=== PATIENT | female | born 1970 | race American Indian/Alaskan Native ===

== ENCOUNTER 2017-01-15 08:30 | Day surgery (SDC) | payer BC ==
[2017-01-15] MEDS ORDERED: NACL 0.9% 1000 ML 1,000 ML IV SCH (09:00)
--- NOTE | 2017-01-15 09:14 | Anesthesia Day of Surgery ---
Anesthesia Day of Surgery - Day of Surgery Patient Examined: Yes Patient H&P Reviewed: Yes Patient is NPO: Yes
--- NOTE | 2017-01-15 09:15 | Anesthesia Consultation ---
Anesthesia Consult and Med Hx Date of service: 01/15/17 - Airway Anesthetic Teeth Evaluation: Good ROM Head & Neck: Adequate Mental/Hyoid Distance: Adequate Mallampati Class: Class II Intubation Access Assessment: Probably Good - Pulmonary Exam CTA: Yes - Cardiac Exam Cardiac Exam: RRR - Pre-Operative Health Status ASA Pre-Surgery Classification: ASA1 Proposed Anesthetic Plan: MAC - Pulmonary Hx Smoking: No - Cardiovascular System Hx Hypertension: No Hx Heart Attack/AMI: No - Central Nervous System Hx Seizures: No CVA: No - Endocrine Hx Renal Disease: No Hx Liver Disease: No Hx Non-Insulin Dependent Diabetes: No - Additional Comments Anesthesia Medical History Comments: NAC
[2017-01-15] MEDS ORDERED: DIPRIVAN 10 MG/ML IV ONE ×2 (09:16)
--- NOTE | 2017-01-15 10:29 | Short Stay Summary ---
Short Stay Documentation Date of service: 01/15/17 Narrative H&P: Patient presents for her first screening colonoscopy. No prior studies. Average risks - History Past Medical History: No medical history Past Surgical History: No surgical history Social history: no significant social history - Allergies and Medications Current Medications: Allergies No Known Allergies Allergy (Unverified 01/15/17 08:30) Active Medications Sodium Chloride (Nacl 0.9% 1000 Ml) 1,000 mls @ 50 mls/hr IV DIRECT GENEVIEVE Last Admin: 01/15/17 09:38 Dose: 50 mls/hr - Physical exam General appearance: no acute distress, well-nourished Integumentary: no rash, no growths, no abnormal pigmentation HEENT: Atraumatic, PERRLA, EOMI, Mucous membr. moist/pink Lungs: Clear to auscultation, Normal air movement Breasts: deferred Heart: Regular rate, Normal S1, Normal S2, No murmurs Gastrointestinal: normoactive bowel sounds, no distended, no masses, no guarding Female Genitourinary: deferred Rectal Exam: deferred, normal exam-external/orifice, normal rectal tone, no mass Extremities: no ischemia, pulses intact, pulses symmetrical, No edema, normal temperature, normal color, Full ROM Neurological: Normal gait, Normal speech, Strength at 5/5 X4 ext, Normal tone, Sensation intact, Cranial nerves 3-12 NL - Brief post op/procedure progress note Date of procedure: 01/15/17 Findings: see intake form Estimated blood loss: none Pathology: none Condition: stable - Disposition Condition at discharge: Good - Discharge Diagnoses (1) Colon cancer screening Status: Acute Short Stay Discharge Plan Activity: other (no driving for 24 hours) Weight Bearing Status: Full Weight Bearing Diet: regular
--- NOTE | 2017-01-15 10:30 | Operative Report ---
Operative Report Operative Report: Date of procedure: 01/15/2017 Preprocedure diagnosis: Colon cancer screening, average risk Post procedure diagnosis: Normal study to the cecum Procedure: Colonoscopy to the cecum Endoscopist: Dr. Burroughs Anesthesia: Monitored anesthesia care per anesthesia department Estimated blood loss: 0 Medications: Monitored anesthesia care. See separate report by anesthesia for details. After careful discussion of the nature and purpose of the procedure as well as details of the technique risks benefits and alternatives the patient gave consent. Please see recent history and physical from the office. The patient was placed in the left lateral decubitus position and medicated per anesthesia. A rectal exam was performed sphincter tone was normal there were no masses palpable. The Scrap Connectionn 570 scope was passed transanally and advanced under continuous direct vision without difficulty to the cecum. The colon was well prepared. The cecum was normal. The ascending colon was normal and on forward and retroflexed views. The transverse colon, descending colon, and sigmoid colon were normal. The rectum was normal on forward and retroflexed views. The procedure was well-tolerated overall and the patient was observed in recovery. Conclusions: Normal colonoscopy to the cecum. Plan: Repeat colonoscopy in 10 years Signed electronically: Nico Burroughs M.D.
--- NOTE | 2017-01-15 10:42 | Post Anesthesia Evaluation ---
- Post Anesthesia Evaluation Patient Participated: Yes Airway Patent: Yes Stable Respiratory Function: Yes Nausea/Vomiting: No Temp > 96.8F: Yes Pain Manageable: Yes Adequeate Hydration: Yes Anesthesia Complications: No
[2017-01-15 10:55] VITALS: BP 127/81
== END 2017-01-15 08:31 | disposition home or self-care (01) ==
LOC: GIO 08:30
PROVIDERS: ATTEND Internal Medicine Gastroenterology
DX: Z12.11 Encounter for screening for malignant neoplasm of colon (principal)
CPT/HCPCS: 45378; 81025; J2704; J7030

== ENCOUNTER 2017-09-30 07:14 | Outpatient (CLI) | payer BC ==
--- NOTE | 2017-10-01 12:12 | Mammography Report ---
BILATERAL DIGITAL SCREENING MAMMOGRAM with CAD: 09/30/17 07:14:00 CLINICAL: Routine screening. COMPARISON:None available. She indicated that she has had a previous mammogram but did not give the location. FINDINGS: The breasts are heterogeneously dense, which may obscure small masses. A left upper outer biopsy clip in benign appearing calcifications adjacent to the clip.Several left inner asymmetries require additional imaging. Right retroareolar and outer calcifications along with a right inner asymmetry require additional imaging. IMPRESSION: Bilateral asymmetries and right calcifications requiring further workup. BI-RADS CATEGORY: 0 -- Additional Imaging Evaluation Required RECOMMENDATION: Recall for bilateral true lateral, right exaggerated CC and right ML and exaggerated CC spot magnification views and bilateral breast ultrasound if needed. ACR BI-RADS MAMMOGRAPHIC CODES: 0 = Needs additional imaging evaluation; 1 = Negative; 2 = Benign; 3 = Probably benign; 4 = Suspicious; 5 = Malignant; 6 = Known biopsy-proven malignancy COMMENT: 1. Dense breast tissue, i.e., adenosis, fibrocystic changes, etc., may obscure an underlying neoplasm. 2. Approximately 10% of cancers are not detected with mammography. 3. A negative mammography report should not delay biopsy if a clinically suspicious mass is present. COMMENT: Patient follow-up letters are generated via our [employer] application.
== END 2017-09-30 07:15 | disposition home or self-care (01) ==
LOC: MAMMO 07:14
PROVIDERS: ATTEND Obstetrics & Gynecology
DX: Z12.31 Encounter for screening mammogram for malignant neoplasm of breast (principal)
CPT/HCPCS: 77067

== ENCOUNTER 2017-10-06 09:24 | Outpatient (CLI) | payer BC ==
[2017-10-06 10:02] LABS: BUN/Creatinine Ratio 22; Blood Urea Nitrogen 13 mg/dL (7-17); Chol/HDL Ratio 2.97 %; HDL Cholesterol 46 mg/dL (40-59); Hemolysis Index 3; LDL Cholesterol,Direct 83 mg/dL (50-130)
== END 2017-10-06 09:25 | disposition home or self-care (01) ==
LOC: LAB 09:24
PROVIDERS: ATTEND Obstetrics & Gynecology
DX: Z01.411 Encounter for gynecological examination (general) (routine) with abnormal findings (principal); R79.89 Other specified abnormal findings of blood chemistry
CPT/HCPCS: 36415; 80048; 80061

== ENCOUNTER 2017-11-07 10:38 | Outpatient (CLI) | payer BC ==
--- NOTE | 2017-11-10 15:04 | Ultrasound Report ---
BILATERAL DIGITAL DIAGNOSTIC MAMMOGRAM and BILATERAL BREAST ULTRASOUND: 11/07/17 10:38:00 CLINICAL: Recalled for bilateral asymmetries and right calcifications. COMPARISON:09/30/17 screening FINDINGS: Right exaggerated CC and ML views with spot magnification demonstrated several groups of amorphous outer calcificationswhich do not layer on the lateral view. On the screening images there is a suggestion that these may be related to one or more lymph nodes in the axilla. However, no distinct lymph nodes are identified on the spot images. A group of similar calcifications is identified on a spot mag CC view. These are slightly lateral to the nipple and approximately 6 cm from the nipple. They're not clearly identified on MLO or lateral views. Partial effacement of bilateral lower inner asymmetries on spot mag views. Ultrasound of both breasts (including all four quadrants and the retroareolar area) was performed. A cyst with low level internal echoes at 9 o'clock 2 cm from the nipple measures 5 x 3 x 3 mm. An isoechoic oval smooth mass versus normal fat lobule at 3 o'clock next to the nipple measures 1.1 x 0.5 x 0.8 cm. Ultrasound of the right axilla demonstrated a lymph node with benign morphology at 10 o'clock 12 cm from the nipple measuring 1.8 x 0.6 cm. Several smaller benign-appearing lymph nodes and no distinct calcifications associated with the lymph nodes. An irregular left cyst with low level internal echoes at 11 o'clock next to the nipple measures 1.5 x 0.7 x 1.7 cm. A cyst at 10 o'clock 6 cm from the nipple measures 5 x 3 x 6 mm. An isoechoic mass versus normal breast lobule at 8 o'clock 3 cm from the nipple measures 6 x 5 x 4 mm. A complex cyst at 6 o'clock 4 cm from the nipple measures 6 x 3 x 7 mm. A cyst at 4 o'clock 3 cm from the nipple measures 7 x 8 x 5 mm. IMPRESSION: Probably benign right calcifications and probably benign mammographic asymmetries and bilateral complex cysts. BI-RADS CATEGORY: 3 - - Probably Benign RECOMMENDATION: Six month followup bilateral mammogram and bilateral breast ultrasound at [facility]. ACR BI-RADS MAMMOGRAPHIC CODES: 0 = Needs additional imaging evaluation; 1 = Negative; 2 = Benign; 3 = Probably benign; 4 = Suspicious; 5 = Malignant; 6 = Known biopsy-proven malignancy COMMENT: 1. Dense breast tissue, i.e., adenosis, fibrocystic changes, etc., may obscure an underlying neoplasm. 2. Approximately 10% of cancers are not detected with mammography. 3. A negative mammography report should not delay biopsy if a clinically suspicious mass is present. COMMENT: Patient follow-up letters are generated via our [employer] application.
== END 2017-11-07 10:39 | disposition home or self-care (01) ==
LOC: MAMMO 10:38
PROVIDERS: ATTEND Obstetrics & Gynecology
DX: N64.89 Other specified disorders of breast (principal)
CPT/HCPCS: 77066

== ENCOUNTER 2018-06-22 09:21 | Outpatient (CLI) | payer BC ==
--- NOTE | 2018-06-25 08:58 | Ultrasound Report ---
BILATERAL BREAST ULTRASOUND: 06/22/18 09:21:00 CLINICAL: Bilateral asymmetries on recent mammogram. COMPARISON: 05/29/18 bilateral mammogram and 11/07/17 bilateral breast ultrasound. FINDINGS: Ultrasound of the right breast(including all four quadrants and the retroareolar area) was performed and demonstrated a stable oval smooth solid mass at 3 o'clock near the areola measuring 1.0 x 0.8 x 0.6 cm compared to 1.1 x 0.5 x 0.8 cm. This was thought to possibly be a normal fat lobule on the last exam. New complex cysts versus solid nodules at 2 o'clock at the areola measuring 5 x 5 x 3 mm and at 4 o'clock 5 cm from the nipple measuring 5 x 3 x 3 mm. A benign cyst at 9 o'clock 3 cm from the nipple measures 5 x 3 x 2 mm. Ultrasound of the left breast (including all four quadrants and the retroareolar area) was performed and demonstrated an oval smooth complex cyst versus solid nodule at 7 o'clock near the areola measuring 9 x 5 x 5 mm. This is apparently new since the last exam. An irregular complex cyst versus solid nodule at 3 o'clock 3 cm from the nipple measures 5 x 5 x 2 mm. A benign cyst at 4 o'clock 2 cm from the nipple measures 8 x 7 x 5 mm. A slightly irregular complex cyst versus solid nodule subareolar at 9 o'clock measures 9 x 5 mm. The previously described irregular cyst at 11 o'clock next to the nipple is no longer identified. Several additional small benign cysts and probably benign complex cysts. IMPRESSION: Bilateral benign cyst and probably benign complex cyst versus solid nodules. Stable oval smooth solid probably benign right breast mass at 3 o'clock near the areola measuring 1.0 x 0.8 x 0.6 cm. BI-RADS 3 - - Probably Benign RECOMMENDATION: Six month followup bilateral breast ultrasound.
== END 2018-06-22 09:22 | disposition home or self-care (01) ==
LOC: US 09:21
PROVIDERS: ATTEND Obstetrics & Gynecology
DX: N60.02 Solitary cyst of left breast (principal); N60.01 Solitary cyst of right breast

== ENCOUNTER 2019-01-21 09:19 | Outpatient (CLI) | payer BC ==
--- NOTE | 2019-01-21 17:15 | Mammography Report ---
LEFT DIGITAL DIAGNOSTIC MAMMOGRAM 01/21/2019 BILATERAL BREAST ULTRASOUND INDICATION: Bilateral complex cyst seen on prior ultrasound. Changing nodularity in the retroareolar left breast on ultrasound. TECHNIQUE: Digital left mammographic imaging was performed. Left breast CC and MLO images were obtai greg. Spot compression views were obtained. COMPARISON: Mammogram dated 11/07/2017 and ultrasound dated 06/22/2018 FINDINGS: Breast Density: The breasts are heterogeneously dense, which may obscure small masses. There is no evidence of dominant mass, suspicious calcifications or architectural distortion in the l eft breast. Specifically, there is no definitive abnormality seen in the retroareolar left breast cor relate with the patient's changing nodularity seen on current ultrasound Ultrasound Findings: Complete sonographic evaluation of all four quadrants and retroareolar region wa s performed. Both breasts were ultrasounded.. Bilateral axillary regions were imaged as well. Right breast: A benign-appearing nodule is seen in the 3:00 retroareolar position measuring 10 mm in maximum diameter, unchanged from the prior ultrasound. In the retroareolar 2:00 position of the right breast there is a mixed echotexture nodule measuring 11 x 4 x 6 mm. It has smooth borders and increa sed through transmission and is parallel to the skin surface. It has become more solid appearing and larger when compared with the prior ultrasound.. Minimal vascularity is noted on Doppler analysis. Th is nodule may have a hyperechoic center. The remainder of the right breast shows normal fibroglandula r tissue. On the left a benign-appearing cyst is noted in the 4:00 position 5 cm from nipple measuring 8.5 mm i n maximum diameter. In the retroareolar 7:00 position there is a solid nodule measuring 5.9 x 4.2 x 3 .9 mm. This is essentially unchanged from ultrasound dated 11/07/2017 (labeled as 8:00 position on the prior ultrasound). In the retroareolar 9:00 position, there is an irregular solid mass measuring 1.3 x 0.6 x 1.0 cm (0.9 x 0.5 x 0.9 cm on prior ultrasound). There is no definitive mammographic correlat e. The remainder of the left breast shows normal thyroid glandular tissue. IMPRESSION: Retroareolar solid nodule in the 9:00 position appears to be increasing in size. There is no mammographic bullet. Ultrasound-guided biopsy is recommended. BI-RADS Category 4: Suspicious for Malignancy. A "normal" or negative report should not discourage follow up or biopsy of a clinically significant f inding. A written summary of these findings will be mailed to the patient. The patient will be entered into a mammography reporting system which will generate a reminder letter for the patient's next appointmen t at the appropriate interval. According to the [employer], yearly mammograms are recommended starting at age 40 and continuing as long as a woman is in good health. Breast MRI is recommended for women with an rosalie roximately 20-25% or greater lifetime risk of breast cancer, including women with a strong family his tory of breast or ovarian cancer and women who have been treated for Hodgkin's disease. Signer Name: Deloris Hager MD Signed: 01/21/2019 5:11 PM Workstation Name: [id number]
== END 2019-01-21 09:20 | disposition home or self-care (01) ==
LOC: US 09:19
PROVIDERS: ATTEND Obstetrics & Gynecology
DX: N63.12 Unspecified lump in the right breast, upper inner quadrant (principal); N63.23 Unspecified lump in the left breast, lower outer quadrant; R92.8 Other abnormal and inconclusive findings on diagnostic imaging of breast

== ENCOUNTER 2019-03-12 13:41 | Emergency (ER) | payer BC, OTHER ==
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
[2019-03-12 16:20] VITALS: BP 150/79
== END 2019-03-12 16:20 | disposition home or self-care (01) ==
LOC: ED 13:41
DX: S29.012A Strain of muscle and tendon of back wall of thorax, initial encounter (principal); Z91.018 Allergy to other foods; V89.2XXA Person injured in unspecified motor-vehicle accident, traffic, initial encounter; Y93.89 Activity, other specified; Y92.410 Unspecified street and highway as the place of occurrence of the external cause; Y99.8 Other external cause status
CPT/HCPCS: 72070

== ENCOUNTER 2019-08-02 09:20 | Outpatient (CLI) | payer BC ==
--- NOTE | 2019-08-03 08:13 | Ultrasound Report ---
LIMITED BILATERAL BREAST ULTRASOUND HISTORY: Follow-up bilateral probably benign cysts and nodules. COMPARISON: 01/21/2019 FINDINGS: Focused sonographic evaluation upon the 3:00 retroareolar location of the right breast demo nstrates a stable 9 x 6 mm x 7 oval smooth solid mass which is slightly hypoechoic compared to adjace nt fat lobules. A stable complex mass at the edge of the areola at 2:00 measures 10 x 4 x 6 mm. It vera s a 4 mm cystic component. Focused sonographic evaluation upon the 4:00 5 cm from the nipple location of the left breast demonst rates a slightly smaller oval cyst with low-level internal echoes measuring 7 x 6 x 6 mm. An oval too id relatively smooth mildly hypoechoic mass at the edge of the areola at 7:00 measures 6 x 4 x 6 mm a nd is unchanged. An irregular hypoechoic mass versus complex cyst at 9:00 at the edge of the areola m easures 12 14 x 5 mm compared to 13 x 10 x 10 mm. IMPRESSION: 1. A stable probably benign solid smooth right breast mass at 3:00 retroareolar and a stable complex right breast mass at the edge of the areola at 2:00. 2. A slightly smaller benign left breast cyst at 4:00 5 cm from the nipple. 3. A stable probably benign 6 mm solid left breast mass at the edge of the areola at 7:00. 4. A stable probably benign 14 mm complex cyst versus solid left breast mass at 9:00 at the edge of t he areola. 5. Recommend additional 6 month follow-up bilateral breast ultrasound and bilateral diagnostic mammog mag to reevaluate the right breast lesions at 3:00 and at 2:00 and the left breast lesions at 7:00 an d at 9:00. BIRADS 3: Probably benign. Signer Name: José Chinchilla MD Signed: 08/03/2019 8:09 AM Workstation Name: [id number]
== END 2019-08-02 09:21 | disposition home or self-care (01) ==
LOC: US 09:20
PROVIDERS: ATTEND Obstetrics & Gynecology
DX: N60.01 Solitary cyst of right breast (principal); N60.02 Solitary cyst of left breast; N64.89 Other specified disorders of breast

== ENCOUNTER 2020-07-18 10:54 | Outpatient (CLI) | payer BC ==
[2020-07-18 11:33] LABS: Basophils # (Auto) 0.1 K/mm3 (0.0-0.1); Basophils % (Auto) 1.1 % (0.0-1.8); Eosinophils % (Auto) 0.6 % (0.0-4.3); Hematocrit 34.7 % (30.3-42.9); Hemoglobin 11.3 gm/dl (10.1-14.3); Lymphocytes # (Auto) 2.8 K/mm3 (1.2-5.4); Lymphocytes % (Auto) 38.4 % (13.4-35.0); Mean Corpuscular HGB Conc 33 % (30-34); Mean Corpuscular Volume 88 fl (79-97); Monocytes # (Auto) 0.7 K/mm3 (0.0-0.8); Monocytes % (Auto) 8.9 % (0.0-7.3); Platelet Count 172 K/mm3 (140-440); Red Blood Count 3.93 M/mm3 (3.65-5.03); Red Cell Distribution Width 15.6 % (13.2-15.2)
== END 2020-07-18 10:55 | disposition home or self-care (01) ==
LOC: LAB 10:54
PROVIDERS: ATTEND Obstetrics & Gynecology
DX: N92.0 Excessive and frequent menstruation with regular cycle (principal); L68.0 Hirsutism; R63.4 Abnormal weight loss
CPT/HCPCS: 36415; 82670; 83001; 84402; 84443; 85025

== ENCOUNTER 2021-05-08 12:11 | Outpatient (CLI) | payer BC ==
--- NOTE | 2021-05-08 13:16 | XRay Report ---
RIGHT FOOT HISTORY: Pain. COMPARISON: None. TECHNIQUE: 3 views of the right foot were obtained. FINDINGS: Bones: No fracture or dislocation. Joint spaces: Maintained. Soft tissues: No significant abnormality. Additional findings: None. IMPRESSION: Right foot without evidence of acute osseous injury. Signer Name: oCllin Gonsalez MD Signed: 05/08/2021 1:11 PM Workstation Name: [id number]
== END 2021-05-08 12:12 | disposition home or self-care (01) ==
LOC: XRAY 12:11
PROVIDERS: ATTEND Orthopaedic Surgery
DX: S92.354A Nondisplaced fracture of fifth metatarsal bone, right foot, initial encounter for closed fracture (principal); X58.XXXA Exposure to other specified factors, initial encounter; Y93.89 Activity, other specified; Y92.89 Other specified places as the place of occurrence of the external cause; Y99.8 Other external cause status

== ENCOUNTER 2021-05-09 23:40 | Emergency (ER) | payer BC ==
[2021-05-10] MEDS ORDERED: ASPIRIN 325 MG TAB PO ONE (02:27)
--- NOTE | 2021-05-10 02:58 | XRay Report ---
CHEST 2 VIEWS INDICATION / CLINICAL INFORMATION: Palpitations and bradycardia. COMPARISON: None available. FINDINGS: SUPPORT DEVICES: None. HEART / MEDIASTINUM: The heart size and pulmonary vasculature are normal. The aorta is normal in celestina emmett. LUNGS / PLEURA: No significant pulmonary or pleural abnormality. No pneumothorax. ADDITIONAL FINDINGS: No significant additional findings. IMPRESSION: No acute findings. Signer Name: Michael Gary MD Signed: 05/10/2021 2:53 AM Workstation Name: [id number]
[2021-05-10 03:22] LABS: Basophils % (Auto) 0.4 % (0.0-1.8); Eosinophils % (Auto) 0.3 % (0.0-4.3); Lymphocytes % (Auto) 45.1 % (13.4-35.0); Mean Corpuscular HGB Conc 31 % (30-34); Mean Corpuscular Volume 88 fl (79-97); Monocytes # (Auto) 0.8 K/mm3 (0.0-0.8); Monocytes % (Auto) 8.5 % (0.0-7.3); Platelet Count 215 K/mm3 (140-440); Red Blood Count 4.34 M/mm3 (3.65-5.03); Red Cell Distribution Width 15.8 % (13.2-15.2)
[2021-05-10 03:31] LABS: Hematocrit 38.1 % (30.3-42.9); Hemoglobin 11.6 gm/dl (10.1-14.3)
[2021-05-10 03:39] LABS: Alanine Aminotransferase 11 units/L (7-56); Blood Urea Nitrogen 14 mg/dL (7-17); Calcium 8.8 mg/dL (8.4-10.2); Hemolysis Index 6
[2021-05-10 03:40] LABS: BUN/Creatinine Ratio 28
[2021-05-10 06:42] VITALS: BP 132/90
--- NOTE | 2021-05-10 07:18 | Emergency Department Report ---
ED Palpitations HPI - General Chief Complaint: Arrhythmia/Palpitations Stated Complaint: PALPITATIONS Time Seen by Provider: 05/10/21 06:09 Source: patient Mode of arrival: Ambulatory Limitations: No Limitations - History of Present Illness Initial Comments: Patient is a 51-year-old F [place] female who is presenting with palpitations. Patient states that since last night she has been having irregular heart rate. She took her pulse at home and pulse oximeter stated that his heart her heart rate was in the 30s. But she felt as though her heart was racing. Patient states the only medication she is taking now is naproxen and Tylenol for pain from a broken toe. Denies alcohol or drug abuse. States has no chest pain shortness of breath cough cold congestion fevers chills nausea vomiting or diarrhea. - Related Data Previous Rx's Medication Instructions Recorded Last Taken Type HYDROcodone/APAP 5-325 [[place] 1 each PO Q6HR PRN #10 tablet 04/01/19 Unknown Rx 5/325] Allergies Allergy/AdvReac Type Severity Reaction Status Date / Time orange juice Allergy Rash Unverified 04/05/19 07:51 ED Review of Systems ROS: Stated complaint: PALPITATIONS Other details as noted in HPI Comment: All other systems reviewed and negative ED Past Medical Hx - Past Medical History Previous Medical History?: No Hx Hypertension: No Hx Heart Attack/AMI: No Hx Liver Disease: No Hx Renal Disease: No Hx Sickle Cell Disease: No Hx Seizures: No - Surgical History Past Surgical History?: No - Social History Smoking Status: Never Smoker Substance Use Type: None - Medications Home Medications: Home Medications Medication Instructions Recorded Confirmed Last Taken Type HYDROcodone/APAP 5-325 [[place] 1 each PO Q6HR PRN #10 tablet 04/01/19 Unknown Rx 5/325] ED Physical Exam - General Limitations: No Limitations General appearance: alert, in no apparent distress - Head Head exam: Present: atraumatic, normocephalic - Eye Eye exam: Present: normal appearance - ENT ENT exam: Present: mucous membranes moist - Neck Neck exam: Present: normal inspection - Respiratory Respiratory exam: Present: normal lung sounds bilaterally. Absent: respiratory distress, wheezes, rales, rhonchi - Cardiovascular Cardiovascular Exam: Present: regular rate, normal rhythm, normal heart sounds. Absent: systolic murmur, diastolic murmur, rubs, gallop - GI/Abdominal GI/Abdominal exam: Present: soft, normal bowel sounds. Absent: distended, tenderness, guarding, rebound - Extremities Exam Extremities exam: Present: normal inspection - Back Exam Back exam: Present: normal inspection - Neurological Exam Neurological exam: Present: alert, oriented X3 - Psychiatric Psychiatric exam: Present: normal affect, normal mood - Skin Skin exam: Present: warm, dry, intact, normal color. Absent: rash ED Course Vital Signs 05/09/21 05/10/21 05/10/21 23:44 06:42 06:43 Temperature 98.0 F 98.4 F Pulse Rate 85 71 Respiratory 15 20 20 Rate Blood Pressure 151/88 132/90 [Left] O2 Sat by Pulse 100 100 99 Oximetry ED Medical Decision Making - Lab Data Result diagrams: 05/10/21 02:35 05/10/21 02:35 Lab Results 05/10/21 05/10/21 05/10/21 Range/Units 02:35 02:35 02:35 WBC 8.9 (4.5-11.0) K/mm3 RBC 4.34 (3.65-5.03) M/mm3 Hgb 11.6 (10.1-14.3) gm/dl Hct 38.1 (30.3-42.9) % MCV 88 (79-97) fl MCH 27 L (28-32) pg MCHC 31 (30-34) % RDW 15.8 H (13.2-15.2) % Plt Count 215 (140-440) K/mm3 Lymph % (Auto) 45.1 H (13.4-35.0) % [place] % (Auto) 8.5 H (0.0-7.3) % Eos % (Auto) 0.3 (0.0-4.3) % Baso % (Auto) 0.4 (0.0-1.8) % Lymph # (Auto) 4.0 (1.2-5.4) K/mm3 [place] # (Auto) 0.8 (0.0-0.8) K/mm3 Eos # (Auto) 0.0 (0.0-0.4) K/mm3 Baso # (Auto) 0.0 (0.0-0.1) K/mm3 Seg Neutrophils % 45.7 (40.0-70.0) % Seg Neutrophils # 4.1 (1.8-7.7) K/mm3 Sodium 139 (137-145) mmol/L Potassium 4.0 (3.6-5.0) mmol/L Chloride 101.8 (98-107) mmol/L Carbon Dioxide 24 (22-30) mmol/L Anion Gap 17 mmol/L BUN 14 (7-17) mg/dL Creatinine 0.5 L (0.6-1.2) mg/dL Estimated GFR > 60 ml/min BUN/Creatinine Ratio 28 % Glucose 93 (65-100) mg/dL Calcium 8.8 (8.4-10.2) mg/dL Total Bilirubin < 0.20 (0.1-1.2) mg/dL AST 17 (5-40) units/L ALT 11 (7-56) units/L Alkaline Phosphatase 77 (35-129) units/L Troponin T < 0.010 (0.00-0.029) ng/mL Total Protein 7.5 (6.3-8.2) g/dL Albumin 4.0 (3.9-5) g/dL Albumin/Globulin Ratio 1.1 % TSH 2.320 (0.270-4.200) mlU/mL 05/10/21 Range/Units 05:10 WBC (4.5-11.0) K/mm3 RBC (3.65-5.03) M/mm3 Hgb (10.1-14.3) gm/dl Hct (30.3-42.9) % MCV (79-97) fl MCH (28-32) pg MCHC (30-34) % RDW (13.2-15.2) % Plt Count (140-440) K/mm3 Lymph % (Auto) (13.4-35.0) % [place] % (Auto) (0.0-7.3) % Eos % (Auto) (0.0-4.3) % Baso % (Auto) (0.0-1.8) % Lymph # (Auto) (1.2-5.4) K/mm3 [place] # (Auto) (0.0-0.8) K/mm3 Eos # (Auto) (0.0-0.4) K/mm3 Baso # (Auto) (0.0-0.1) K/mm3 Seg Neutrophils % (40.0-70.0) % Seg Neutrophils # (1.8-7.7) K/mm3 Sodium (137-145) mmol/L Potassium (3.6-5.0) mmol/L Chloride (98-107) mmol/L Carbon Dioxide (22-30) mmol/L Anion Gap mmol/L BUN (7-17) mg/dL Creatinine (0.6-1.2) mg/dL Estimated GFR ml/min BUN/Creatinine Ratio % Glucose (65-100) mg/dL Calcium (8.4-10.2) mg/dL Total Bilirubin (0.1-1.2) mg/dL AST (5-40) units/L ALT (7-56) units/L Alkaline Phosphatase (35-129) units/L Troponin T < 0.010 (0.00-0.029) ng/mL Total Protein (6.3-8.2) g/dL Albumin (3.9-5) g/dL Albumin/Globulin Ratio % TSH (0.270-4.200) mlU/mL - EKG Data -: EKG Interpreted by [place] EKG shows normal: sinus rhythm, axis, intervals, QRS complexes, ST-T waves Rate: normal - EKG Data Interpretation: normal EKG, other (Occasional PVC. Time of interpretation 0012) - Radiology Data Ordering Physician: JAVAD ULRICH Date of Service: 05/10/21 Procedure(s): XR chest routine 2V Accession Number(s): [id number] cc: JAVAD ULRICH Fluoro Time In Minutes: CHEST 2 VIEWS INDICATION / CLINICAL INFORMATION: Palpitations and bradycardia. COMPARISON: None available. FINDINGS: SUPPORT DEVICES: None. HEART / MEDIASTINUM: The heart size and pulmonary vasculature are normal. The aorta is normal in caliber. LUNGS / PLEURA: No significant pulmonary or pleural abnormality. No pneumoth orax. ADDITIONAL FINDINGS: No significant additional findings. IMPRESSION: No acute findings. Signer Name: Michael Gary MD Signed: 05/10/2021 2:53 AM Workstation Name: [id number] - Medical Decision Making Patient is a 51-year-old F [place] female who is presenting with palpitations. Patient's heart rate is within normal limits here in the emergency department. She does have occasional PVCs on EKG. May have been an accurate heart rate from her pulse oximeter. In any event the patient will be given cardiology for follow-up and discharged home. Critical care attestation.: If time is entered above; I have spent that time in minutes in the direct care of this critically ill patient, excluding procedure time. ED Disposition Clinical Impression: Palpitations Disposition: 01 HOME / SELF CARE / HOMELESS Is pt being admited?: No Does the pt Need Aspirin: No Condition: Stable Referrals: SANDRITA LAND MD [Staff Physician] - 3-5 Days Time of Disposition: 07:17
--- NOTE | 2021-05-11 12:09 | Electrocardiograph Report ---
[facility] Test Date: 2021-05-10 Test Time: 00:03:50 Pat Name: SRINATH VALENTINE Department: Room: Gender: F [employer]: [place] : 1970 Requested By: SMITA DIAZ Order Number: [id number] Reading MD: Eduin Bruno Measurements Intervals [place] Rate: 77 P: 72 GA: 154 QRS: 30 QRSD: 90 T: 48 QT: 367 QTc: 414 Interpretive Statements Sinus rhythm Ventricular premature complex No previous ECG available for comparison Electronically Signed On 05-11-2021 12:09:25 EST by Eduin Bruno
== END 2021-05-10 07:19 | disposition home or self-care (01) ==
LOC: EEVIPCON 23:40 → ED 23:40
DX: R00.2 Palpitations (principal); Z91.018 Allergy to other foods; Z79.899 Other long term (current) drug therapy
CPT/HCPCS: 36415; 71046; 80053; 84443; 84484; 85025; 93005; 99284

== ENCOUNTER 2021-08-27 09:02 | Outpatient (CLI) | payer OTHER ==
--- NOTE | 2021-08-29 11:23 | Mammography Report ---
DIGITAL SCREENING MAMMOGRAM WITH CAD, 08/27/2021 CLINICAL INFORMATION / INDICATION: Routine screening mammography. TECHNIQUE: Digital bilateral 2D mammography was obtained in the craniocaudal and mediolateral obliqu e projections. This examination was interpreted with the benefit of Computer-Aided Detection analysis . COMPARISON: Prior mammogram 09/30/2017 FINDINGS: Breast Density: The breasts are heterogeneously dense, which may obscure small masses. No dominant mass, suspicious calcifications, or architectural distortion in the left breast. There is a stable biopsy clip in the left breast. There are multiple groups of increasing calcifications seen in the right breast, with the largest com ponent in the posterior upper outer quadrant, and additional small groups seen in the 11:00 and 1:00 positions, middle depth. IMPRESSION: 1. Increasing calcifications in the right breast requires further evaluation with magnification views . Follow up recommendation: Special View: Mag BI-RADS Category 0: INCOMPLETE. Needs additional imaging evaluation and/or prior mammograms for anish rison. A "normal" or negative report should not discourage follow up or biopsy of a clinically significant f inding. A written summary of these findings will be mailed to the patient. The patient will be entered into a mammography reporting system which will generate a reminder letter for the patient's next appointmen t at the appropriate interval. The [employer] recommends yearly mammograms starting at age 40 and continuing as l rupal as a woman is in good health. Breast MRI is recommended for women with an approximate 20-25% or greater lifetime risk of breast cancer, including women with a strong family history of breast or ova janine cancer or who have been treated for Hodgkin's disease. Signer Name: Kyra Bro MD Signed: 08/29/2021 11:19 AM Workstation Name: [id number]
== END 2021-08-27 09:03 | disposition home or self-care (01) ==
LOC: MAMMO 09:02
PROVIDERS: ATTEND Obstetrics & Gynecology
DX: Z12.31 Encounter for screening mammogram for malignant neoplasm of breast (principal)
CPT/HCPCS: 77067